=== PATIENT | female | born 1955 | race Two or more races ===

== ENCOUNTER 2021-01-01 18:51 | Inpatient (IN) | payer MEDICARE ==
[~2021-01-01] VITALS: Ht 175.3 cm; Wt 73.9 kg
[~2021-01-01 18:51] MED LIST: AMIO200T42 PO; ASPI81TA45 PO; FURO-92 PO; HUM100VI SC; INSULIN HUMULIN 70/30, 3ML PEN SQ-INSULIN SCH; LEVO88TA4 PO; LORA-445 PO; LOSA1TAB22 PO; METO25TA35 PO; OMEP-110 PO; POTA20TA89 PO; SIMV20TA19 PO; WARF2TAB99 PO
--- NOTE | 2021-01-01 19:10 | NUR ---
CC SOB, FATIGUE, DIZZYNESS. WAS SEEN AT [facility] YESTERDAY, GOT THOROCENTESIS, 500 MLS OFF BLOOD DRAINED OFF AND ECHO. TODAY PTS FRIEND WAS CONCERED, CALLED GUITAR TEACHER MD AND WAS INSTRUCTED TO COME TO ER. CONCERNED FOR BLOOD CLOT, WAS ON LOVENOX AND ELIQUIS BUT DC'D BY GUITAR TEACHER MD. PT WAS TOLD TO GET SECOND ECHO TO COMPARE TO FIRST ONE.
[2021-01-01] MEDS ORDERED: SODIUM CHLORIDE FLUSH 10ML SYR IVF ONE (19:30)
[2021-01-01 19:57] LABS: BASOPHILS % (AUTO) 1 % (0-1); EOSINOPHILS % (AUTO) 1 % (1-7); LYMPHOCYTES % (AUTO) 22 % (22-44); MEAN CORPUSCULAR HEMOGLOBIN 29.1 pg (27.0-34.8); MEAN CORPUSCULAR HGB CONC 33.4 g/dL (32.4-35.8); MEAN PLATELET VOLUME 7.7 fL (7.4-10.4); MONOCYTES % (AUTO) 14 % (2-9); NEUTROPHILS % (AUTO) 63 % (42-75); PLATELET COUNT 657 x10^3/uL (130-400); RED BLOOD COUNT 3.87 x10^6/uL (3.82-5.3); RED CELL DISTRIBUTION WIDTH 14.2 % (9.6-15.2)
[2021-01-01 19:59] LABS: MD NO
[2021-01-01 20:04] LABS: ALANINE AMINOTRANSFERASE 33 U/L (12-78); ALBUMIN 2.5 g/dL (3.4-5.0); ANION GAP 4 mmol/L (5-15); CHLORIDE 101 mmol/L (98-107); CREATININE 0.96 mg/dL (0.55-1.02)
[2021-01-01 20:05] LABS: INTERNATIONAL NORMALIZED RATIO 1.57 (0.93-1.1); PROTHROMBIN TIME 16.7 Seconds (9.6-11.5)
[2021-01-01 20:08] LABS: ALKALINE PHOSPHATASE 109 U/L (45-117); BILIRUBIN,TOTAL 0.5 mg/dL (0.2-1.0); TROPONIN I < 0.015 ng/mL (0.000-0.045)
--- NOTE | 2021-01-01 20:30 | NUR ---
PT RESTING IN GURNEY, RESP EVEN AND UNLABORED. [facility] AT BEDSIDE
--- NOTE | 2021-01-01 22:22 | NUR ---
[facility] AT BEDSIDE
[2021-01-01] MEDS ORDERED: LORazepam 0.5MG TABLET PO PRN (22:30)
--- NOTE | 2021-01-01 22:35 | NUR ---
REPORT GIVEN TO KRISTLE ESCOBAR
[2021-01-01] MEDS ORDERED: ACETAMINOPHEN 325 MG TABLET PO PRN (23:00)
[2021-01-01] MEDS ORDERED: POLYETHYLENE GLYCOL 17 GM PACKET PO PRN (23:00)
[2021-01-01] MEDS ORDERED: BISACODYL 10 MG SUPP PR PRN (23:00)
[2021-01-01] MEDS ORDERED: ONDANSETRON ODT 4 MG PO PRN (23:00)
[2021-01-01 23:25] VITALS: BP 103/66
[2021-01-01] MEDS: SODIUM CHLORIDE FLUSH 10ML SYR IVF SCH (23:54)
[2021-01-02 02:00] VITALS: BP 99/59
[2021-01-02 05:31] LABS: ANION GAP 4 mmol/L (5-15); BASOPHILS % (AUTO) 1 % (0-1); CALCIUM 7.8 mg/dL (8.5-10.1); CHLORIDE 104 mmol/L (98-107); CREATININE 0.81 mg/dL (0.55-1.02); EOSINOPHILS % (AUTO) 0 % (1-7); LYMPHOCYTES % (AUTO) 20 % (22-44); MEAN CORPUSCULAR HEMOGLOBIN 29.1 pg (27.0-34.8); MEAN CORPUSCULAR HGB CONC 33.3 g/dL (32.4-35.8); MONOCYTES % (AUTO) 12 % (2-9); NEUTROPHILS % (AUTO) 68 % (42-75); PLATELET COUNT 572 x10^3/uL (130-400); RED BLOOD COUNT 3.59 x10^6/uL (3.82-5.3); RED CELL DISTRIBUTION WIDTH 14.3 % (9.6-15.2)
[2021-01-02 05:38] LABS: MD NO
[2021-01-02] MEDS: LEVOTHYROXINE 88 MCG TABLET PO SCH (06:35)
[2021-01-02] MEDS: METOPROLOL TARTRATE 25 MG TAB PO SCH ×2 (06:35→18:29)
[2021-01-02] MEDS: OMEPRAZOLE 20 MG CAPSULE.DR PO SCH (06:35)
[2021-01-02 07:33] VITALS: BP 100/66
[2021-01-02] MEDS ORDERED: HYDROCHLOROTHIAZIDE 25 MG TABLET PO SCH (09:00)
[2021-01-02] MEDS ORDERED: INSULIN HUMULIN 70/30, 3ML PEN SQ-INSULIN SCH ×2 (09:00→16:30)
[2021-01-02] MEDS: SENNA/DOCUSATE TABLET PO SCH (09:00)
[2021-01-02] MEDS: AMIODARONE 200 MG TABLET PO SCH (09:38)
[2021-01-02] MEDS: SODIUM CHLORIDE FLUSH 10ML SYR IVF SCH ×2 (09:38→21:48)
[2021-01-02] MEDS: LOSARTAN 100 MG TAB PO SCH (09:39)
[2021-01-02] MEDS: POTASSIUM CHLORIDE 20 MEQ TAB.ER.PRT PO SCH (09:39)
[2021-01-02] MEDS: ASPIRIN 81 MG TABLET EC PO SCH (09:39)
[2021-01-02] MEDS: FUROSEMIDE 40 MG TABLET PO SCH (09:39)
[2021-01-02] MEDS: INSULIN HUMULIN 70/30, 3ML PEN SQ-INSULIN SCH (09:40)
[2021-01-02 13:10] VITALS: BP 100/64
[2021-01-02 17:49] VITALS: BP 111/71
[2021-01-02] MEDS ORDERED: WARFARIN 3 MG TABLET PO-COUM ONE (18:00)
[2021-01-02 18:16] LABS: INTERNATIONAL NORMALIZED RATIO 1.57 (0.93-1.1); PROTHROMBIN TIME 16.7 Seconds (9.6-11.5)
[2021-01-02] MEDS ORDERED: SIMVASTATIN 20 MG TABLET PO SCH (21:00)
[2021-01-02 21:08] VITALS: BP 101/62
[2021-01-02] MEDS: BENZONATATE 100 MG CAPSULE PO SCH (21:47)
[2021-01-03 02:08] VITALS: BP 94/61
[2021-01-03 05:04] LABS: BASOPHILS % (AUTO) 0 % (0-1); EOSINOPHILS % (AUTO) 1 % (1-7); LYMPHOCYTES % (AUTO) 23 % (22-44); MEAN CORPUSCULAR HEMOGLOBIN 28.8 pg (27.0-34.8); MEAN CORPUSCULAR HGB CONC 33.1 g/dL (32.4-35.8); MEAN PLATELET VOLUME 7.7 fL (7.4-10.4); MONOCYTES % (AUTO) 11 % (2-9); NEUTROPHILS % (AUTO) 66 % (42-75); PLATELET COUNT 566 x10^3/uL (130-400); RED BLOOD COUNT 3.68 x10^6/uL (3.82-5.3); RED CELL DISTRIBUTION WIDTH 14.3 % (9.6-15.2)
[2021-01-03 05:06] LABS: MD NO
[2021-01-03 05:15] LABS: ALANINE AMINOTRANSFERASE 23 U/L (12-78); ALBUMIN 2.3 g/dL (3.4-5.0); ANION GAP 5 mmol/L (5-15); CALCIUM 7.9 mg/dL (8.5-10.1); CHLORIDE 102 mmol/L (98-107); CREATININE 0.65 mg/dL (0.55-1.02)
[2021-01-03 05:17] LABS: ALKALINE PHOSPHATASE 93 U/L (45-117); BILIRUBIN,TOTAL 0.4 mg/dL (0.2-1.0); TOTAL PROTEIN 7.4 g/dL (6.4-8.2)
[2021-01-03] MEDS: LEVOTHYROXINE 88 MCG TABLET PO SCH (06:09)
[2021-01-03] MEDS: METOPROLOL TARTRATE 25 MG TAB PO SCH (06:10)
[2021-01-03 06:48] LABS: INTERNATIONAL NORMALIZED RATIO 1.58 (0.93-1.1); PROTHROMBIN TIME 16.8 Seconds (9.6-11.5)
[2021-01-03 07:08] VITALS: BP 106/66
[2021-01-03] MEDS: ASPIRIN 81 MG TABLET EC PO SCH (08:44)
[2021-01-03] MEDS: FUROSEMIDE 40 MG TABLET PO SCH (08:44)
[2021-01-03] MEDS: BENZONATATE 100 MG CAPSULE PO SCH (08:44)
[2021-01-03] MEDS: OMEPRAZOLE 20 MG CAPSULE.DR PO SCH (08:45)
[2021-01-03] MEDS: LOSARTAN 100 MG TAB PO SCH (08:45)
[2021-01-03] MEDS: AMIODARONE 200 MG TABLET PO SCH (08:45)
[2021-01-03] MEDS: POTASSIUM CHLORIDE 20 MEQ TAB.ER.PRT PO SCH (08:46)
[2021-01-03] MEDS: SENNA/DOCUSATE TABLET PO SCH (08:48)
[2021-01-03] MEDS: SODIUM CHLORIDE FLUSH 10ML SYR IVF SCH (08:48)
[2021-01-03 08:49] VITALS: BP 103/68
[2021-01-03] MEDS: INSULIN HUMULIN 70/30, 3ML PEN SQ-INSULIN SCH (09:00)
== END 2021-01-03 11:07 | disposition home or self-care (01) | DRG 188 ==
LOC: ED 20:04 → EDIP 22:22 → 5SO 23:02 → DCLOUNGE 01-03 10:46
PROVIDERS: ADMIT Internal Medicine; ATTEND Internal Medicine
DX: J90 Pleural effusion, not elsewhere classified (principal); D64.9 Anemia, unspecified; D47.3 Essential (hemorrhagic) thrombocythemia; E78.00 Pure hypercholesterolemia, unspecified; E78.5 Hyperlipidemia, unspecified; I10 Essential (primary) hypertension; I25.10 Atherosclerotic heart disease of native coronary artery without angina pectoris; E11.9 Type 2 diabetes mellitus without complications; I34.0 Nonrheumatic mitral (valve) insufficiency; I44.30 Unspecified atrioventricular block; E03.9 Hypothyroidism, unspecified; R79.1 Abnormal coagulation profile; Z79.4 Long term (current) use of insulin; Z82.49 Family history of ischemic heart disease and other diseases of the circulatory system; Z95.1 Presence of aortocoronary bypass graft; Z79.01 Long term (current) use of anticoagulants
CPT/HCPCS: 36415; 71045; 80048; 80053; 82962; 83880; 84484; 85025; 85610; 93005; 93306; 99285; G0378; J1815